=== PATIENT | female | born 1965 | race African-American/Black ===

== ENCOUNTER 2021-04-09 19:37 | Emergency (ER) | payer SELFPAY ==
[~2021-04-09] VITALS: Ht 170.2 cm; Wt 54.9 kg
[~2021-04-09 19:37] MED LIST: bc powder
[2021-04-09] MEDS ORDERED: PSEU120T56 MT (21:10)
[2021-04-09] MEDS ORDERED: SULF1TAB48 MT (21:10)
[2021-04-09 22:00] VITALS: BP 140/67
== END 2021-04-09 22:15 | disposition home or self-care (01) ==
LOC: ER 19:37
DX: J32.9 Chronic sinusitis, unspecified (principal); R09.82 Postnasal drip; F17.200 Nicotine dependence, unspecified, uncomplicated; I49.9 Cardiac arrhythmia, unspecified; Z88.6 Allergy status to analgesic agent
CPT/HCPCS: 71045; 93005; 99283

== ENCOUNTER 2025-02-10 01:34 | Inpatient (IN) | payer SELFPAY ==
[~2025-02-10] VITALS: Ht 170.2 cm; Wt 51.7 kg
[~2025-02-10 01:34] MED LIST changes: +PSEU120T56 MT; +SULF1TAB48 MT
[2025-02-10 01:37] VITALS: O2SAT 98
[2025-02-10] MEDS: SODIUM CHLORIDE 0.9% 1,000 ML IV ONE (02:32)
[2025-02-10 02:38] LABS: MEAN PLATELET VOLUME 7.1 fl (7.4-10.4); PLATELET 404 x1000/uL (130-400); RED BLOOD CELL COUNT 2.40 mill/uL (4.2-5.4); RED CELL DISTRIBUTION WIDTH 23.3 % (11.6-14.6)
[2025-02-10 02:44] LABS: HEMATOCRIT. 19.1 % (36.0-48.0); HEMOGLOBIN. 6.0 g/dL (12.0-16.0)
[2025-02-10 02:48] LABS: CREATININE 0.5 mg/dL (0.6-1.0)
[2025-02-10 02:49] LABS: ETHANOL BLOOD < 10 mg/dL (<10); TROPONIN I HIGH SENSITIVITY 9 ng/L (3.0-34); UREA NITROGEN BLOOD < 5 mg/dL (9-23)
[2025-02-10 02:50] LABS: ASPARTATE AMINOTRANSFERASE 140 IU/L (<34)
[2025-02-10 02:51] LABS: BILIRUBIN DIRECT 0.3 mg/dL (<=3.0); BILIRUBIN TOTAL 0.5 mg/dL (0.1-1.0); PROTEIN TOTAL 6.8 g/dL (6.0-8.3)
[2025-02-10] MEDS: MAGNESIUM 2 G PREMIX 50 ML IV NR (04:39)
[2025-02-10] MEDS: POTASSIUM CHLORIDE 20MEQ/PACKET PO NR (04:39)
[2025-02-10] MEDS: KCL 20MEQ/100ML PREMIX 100 ML IV SCH (05:00)
[2025-02-10 06:11] LABS: BASOPHILS % MANUAL 2.0 % (0.0-2.0); EOSINOPHILS % MANUAL 4.0 % (0.0-5.0); LYMPHOCYTES % MANUAL 22.0 % (20.0-60.0); MONOCYTES % MANUAL 8.0 % (2.0-8.0); NEUTROPHILS % MANUAL 64.0 % (45.0-75.0); PLATELET ESTIMATE NORMAL
[2025-02-10] MEDS ORDERED: IPRATROPIUM/ALBUTEROL 0.5-3(2.5)MG/3ML NEB HHN PRN (07:30)
[2025-02-10] MEDS ORDERED: ONDANSETRON HCL 4MG/2ML INJ IV PRN (07:30)
[2025-02-10] MEDS ORDERED: ACETAMINOPHEN 325MG TABLET PO PRN (07:30)
[2025-02-10 09:05] LABS: VITAMIN B12 SERUM > 2000 pg/mL (211-911)
[2025-02-10 12:00] VITALS: BP 115/55; PULSE 74; RESP 18; TEMP 36.1; O2SAT 100
[2025-02-10 12:32] VITALS: BP 118/63; PULSE 75; RESP 18; TEMP 36.4736
[2025-02-10] MEDS ORDERED: DOCUSATE SODIUM 250MG CAPSULE PO PRN (13:30)
[2025-02-10 16:00] VITALS: BP 116/59; PULSE 83; RESP 20; TEMP 36.5; O2SAT 99
[2025-02-10 16:43] LABS: TROPONIN I HIGH SENSITIVITY 7 ng/L (3.0-34)
[2025-02-10 16:44] LABS: PHOSPHORUS 1.1 mg/dL (2.5-4.9)
[2025-02-10 16:45] LABS: CREATININE 0.5 mg/dL (0.6-1.0); UREA NITROGEN BLOOD < 5 mg/dL (9-23)
[2025-02-10 16:49] LABS: T4 FREE 0.81 ng/dL (0.89-1.76)
[2025-02-10] MEDS: FERROUS SULFATE 325MG TABLET PO SCH (18:14)
[2025-02-10] MEDS: POTASSIUM CHLORIDE 20MEQ TABLET SR PO SCH (18:14)
[2025-02-10 20:00] VITALS: PULSE 80
[2025-02-10] MEDS: POTASSIUM-SODIUM PHOSPHATE POWDER PACKET PO SCH (21:00)
[2025-02-10 22:00] VITALS: PULSE 79
[2025-02-11] VITALS (11 sets, daily range): BP systolic 108–125; BP diastolic 54–68; PULSE 78–98; RESP 16–24; TEMP 36.55848–36.9; O2SAT 97–99
[2025-02-11 00:39] LABS: TROPONIN I HIGH SENSITIVITY 7 ng/L (3.0-34)
[2025-02-11] MEDS: POTASSIUM-SODIUM PHOSPHATE POWDER PACKET PO NR (05:19)
[2025-02-11] MEDS: PANTOPRAZOLE SODIUM 40 MG/VIAL IV SCH (15:50)
[2025-02-11] MEDS ORDERED: SODIUM CHLORIDE 0.9% (SEPSIS BOLUS) IV ONE (17:45)
[2025-02-12 04:00] VITALS: BP 130/69; PULSE 82; RESP 18; TEMP 36.6; O2SAT 97
[2025-02-12 08:00] VITALS: BP 121/66; PULSE 79; PULSE 99; RESP 18; TEMP 37.1; O2SAT 95
[2025-02-12 09:20] LABS: BASOPHILS % 1.2 % (0.0-2.0); EOSINOPHILS % 2.4 % (0.0-5.0); HEMATOCRIT. 28.3 % (36.0-48.0); LYMPHOCYTES % 23.1 % (20.0-50.0); MEAN PLATELET VOLUME 7.3 fl (7.4-10.4); MONOCYTES % 8.3 % (2.0-8.0); NEUTROPHILS % 65.0 % (40.0-76.0); PLATELET 278 x1000/uL (130-400); RED BLOOD CELL COUNT 3.56 mill/uL (4.2-5.4); RED CELL DISTRIBUTION WIDTH 20.8 % (11.6-14.6)
[2025-02-12 09:28] LABS: HEMOGLOBIN. 9.2 g/dL (12.0-16.0)
[2025-02-12 09:35] LABS: CREATININE 0.4 mg/dL (0.6-1.0)
[2025-02-12 09:36] LABS: UREA NITROGEN BLOOD < 5 mg/dL (9-23)
[2025-02-12 09:37] LABS: ASPARTATE AMINOTRANSFERASE 135 IU/L (<34)
[2025-02-12] MEDS ORDERED: POTASSIUM CHLORIDE 40 MEQ in DEXT 5% WATER 230 ML IV STA (09:37)
[2025-02-12] MEDS: POTASSIUM CHLORIDE 20MEQ/PACKET PO NR (09:37)
[2025-02-12 09:38] LABS: BILIRUBIN DIRECT 1.1 mg/dL (<=3.0); BILIRUBIN TOTAL 1.9 mg/dL (0.1-1.0); PROTEIN TOTAL 5.6 g/dL (6.0-8.3)
[2025-02-12 09:39] LABS: INR 1.2
[2025-02-12 09:41] LABS: FOLIC ACID (FOLATE) SERUM 5.86 ng/mL (>5.38)
[2025-02-12] MEDS: KCL 20MEQ/100ML X 2 FOR TOTAL KCL 40MEQ/200ML IV SCH (10:00)
[2025-02-12 10:13] LABS: HEPATITIS A AB IGM NEGATIVE (Negative)
[2025-02-12 10:14] LABS: HEPATITIS B CORE AB IGM NEGATIVE (Negative)
[2025-02-12 10:15] LABS: HEPATITIS C AB NON REACTIVE (Neg) (Negative)
[2025-02-12] MEDS ORDERED: ONDANSETRON HCL 4MG/2ML INJ IV PRN ×2 (12:00→12:15)
[2025-02-12] MEDS ORDERED: HYDROMORPHONE HCL/PF 1MG/ML INJ IV PRN (12:00)
[2025-02-12] MEDS ORDERED: LABETALOL 5MG/ML 4ML INJ IV PRN ×2 (12:00→12:15)
[2025-02-12] MEDS ORDERED: HYDRALAZINE 20MG/ML VIAL IV PRN ×4 (12:00→12:15)
[2025-02-12] MEDS ORDERED: FAMOTIDINE 20MG/2ML VIAL IV PRN ×2 (12:00→12:15)
[2025-02-12] MEDS ORDERED: MEPERIDINE HCL/PF 25MG/ML CPJ IV PRN ×2 (12:00→12:15)
[2025-02-12] MEDS ORDERED: ACETAMINOPHEN 1,000MG/100ML PREMIX IV PRN ×2 (12:00→12:15)
[2025-02-12] MEDS ORDERED: HYDROMORPHONE HCL/PF 2MG/ML INJ IV PRN (12:15)
[2025-02-12 13:30] VITALS: BP 134/69; PULSE 76; RESP 18; TEMP 37.1; O2SAT 98
[2025-02-12 16:00] VITALS: BP_SYST 131; BP_SYST 95; BP_DIAS 58; BP_DIAS 60; PULSE 77; RESP 16; RESP 18; TEMP 36.3; TEMP 36.6; O2SAT 97
[2025-02-12] MEDS: GUAIFENESIN-DM 200MG-20MG/10ML UDC PO PRN (19:05)
[2025-02-12] MEDS: ACETAMINOPHEN 1000MG/100ML 100 ML IV NR (19:05)
[2025-02-12 20:00] VITALS: BP 129/74; PULSE 87; RESP 18; TEMP 37.4; O2SAT 97
[2025-02-13 04:00] VITALS: BP 136/78; PULSE 82; RESP 18; TEMP 36.4; O2SAT 98
[2025-02-13 07:08] LABS: ALPHA FETOPROTEIN TUMOR MARKER 6.2 ng/mL (0.0-9.2); CA 19-9 65.0 U/mL (0-35); CANCER ANTIGEN 125 11.7 U/mL (0.0-38.1); CARCINOEMBRYONIC AG - SEND OUT 7.2 ng/mL (0.0-4.7)
[2025-02-13 08:22] VITALS: BP 115/61; PULSE 83; RESP 18; TEMP 36.5; O2SAT 100
[2025-02-13] MEDS ORDERED: MEGE40TA5 MT (09:24)
[2025-02-13] MEDS ORDERED: OMEP40CA20 MT (09:24)
[2025-02-13] MEDS ORDERED: FERR-63 PO (09:27)
[2025-02-13 11:37] VITALS: BP 122/67; PULSE 80; RESP 20; TEMP 97.9
[2025-02-13 12:00] VITALS: BP 122/67; PULSE 80; RESP 20; TEMP 36.6; O2SAT 100
== END 2025-02-13 13:10 | disposition home or self-care (01) | DRG 663 ==
LOC: ER 01:34 → 7WST 03:52 → EDBEDREQTM 03:53 → EDBEDREQ 03:53
PROVIDERS: ADMIT Internal Medicine; ATTEND Internal Medicine
PROC: 30233N1 Transfusion of Nonautologous Red Blood Cells into Peripheral Vein, Percutaneous Approach (ICD-10-PCS; 2025-02-10)
PROC: 0DB68ZX Excision of Stomach, Via Natural or Artificial Opening Endoscopic, Diagnostic (ICD-10-PCS; principal; 2025-02-12)
PROC: 0DB38ZX Excision of Lower Esophagus, Via Natural or Artificial Opening Endoscopic, Diagnostic (ICD-10-PCS; 2025-02-12)
DX: D50.8 Other iron deficiency anemias (principal); R64 Cachexia; K22.10 Ulcer of esophagus without bleeding; K25.9 Gastric ulcer, unspecified as acute or chronic, without hemorrhage or perforation; F17.210 Nicotine dependence, cigarettes, uncomplicated; E86.0 Dehydration; E87.6 Hypokalemia; R00.0 Tachycardia, unspecified; E87.8 Other disorders of electrolyte and fluid balance, not elsewhere classified; R00.8 Other abnormalities of heart beat; K44.9 Diaphragmatic hernia without obstruction or gangrene; K76.0 Fatty (change of) liver, not elsewhere classified; K29.60 Other gastritis without bleeding; K21.00 Gastro-esophageal reflux disease with esophagitis, without bleeding; Z68.1 Body mass index [BMI] 19.9 or less, adult; Z88.6 Allergy status to analgesic agent
CPT/HCPCS: 36415; 36430; 71045; 74176; 80048; 80076; 80320; 82040; 82105; 82378; 82550; 82607; 82728; 82746; 83540; 83550; 83605; 83735; 84075; 84100; 84132; 84134; 84439; 84443; 84484; 85014; 85018; 85025; 85044; 86301; 86304; 86705; 86709; 86850; 86900; 86920; 87340; 88305; 88312; 88313; 93005; 93970; 96360; 99291; A4606; J2470; J3475; J3480; J7030; P9016; G0480; J0131